=== PATIENT | female | born 1950 | race Caucasian/White ===

== ENCOUNTER 2019-11-23 06:05 | Emergency (ER) | payer MEDICARE, SELFPAY ==
[2019-11-23 06:15] VITALS: BP 190/81; PULSE 103; RESP 16; TEMP 36.8; O2SAT 94; BMI 22.6
--- NOTE | 2019-11-23 07:09 | CT_ITS ---
WS: [id number] CT ABDOMEN AND PELVIS WITH CONTRAST HISTORY: abdominal pain, N/V/D TECHNIQUE: Imaging performed of the abdomen and pelvis with IV contrast. Single phase imaging of the abdomen. Coronal and sagittal reformats are submitted. All CT scans at [facility] use at least one of these dose optimization techniques: automated exposure control; mA and/or kV adjustment per patient size (includes targeted exams where dose is matched to clinical indication); or iterativ e reconstruction. IV CONTRAST: Omnipaque 300; 95 mL IV. Oral contrast: No DLP: 528.53 mGy.cm COMPARISON: None available. Lower thorax: Lung bases are clear. Heart is normal size. Small hiatal hernia. Liver/biliary system: Normal size with no intrahepatic dilatation. Gallbladder: Status post cholecystectomy. Pancreas: Normal. Spleen: Normal. Adrenal glands: Normal. Right kidney: Normal. Left kidney: Normal. Aorta: Scattered intimal thickening and calcified plaque. No aneurysm. Lymphadenopathy: None. Free fluid: None. GI tract: The appendix is normal and contains air. No GI tract obstruction. There are some very mild central small bowel wall thickening. This probably in the distal jejunum or proximal ileum and extend s across the mid pelvis. No adjacent fluid. No significant obstruction. Abdominal wall: Unremarkable abdominal wall. No hernia. Pelvis: No free fluid or adenopathy. Calcification or suture in the LEFT adnexa may be from prior tub al ligation or dystrophic calcification. Bones: RIGHT convex curvature lumbar spine. Moderate degenerative disc disease throughout the lumbar spine. Healed rib fracture on the RIGHT probably at the 10th rib. CT/CT abdomen pelvis w con* [id number] IMPRESSION: 1. Mild small bowel wall thickening, probably distal jejunum or proximal ileum . Bowel wall thickening is across the mid pelvis. Acute enteritis. No obstructi on. 2. No ascites. 3. Prior cholecystectomy. 4. Mild atherosclerosis aorta. 5. Normal appendix.
--- NOTE | 2019-11-23 07:10 | W.ED.ABDPA2 ---
HPI - Abdominal Pain General: Chief Complaint: Abdominal Pain Stated Complaint: nausea; bloating; diarrhea x 3days Time Seen by Provider: 11/23/19 06:59 Source: patient Mode of arrival: ambulatory Limitations: no limitations History of Present Illness: HPI narrative: Patient is a 69-year-old female who presents to ED today with complaints of abdominal pain that began 1.5 days ago. She states pain seems to be diffuse but more so to her upper abdomen. She does tell me she has a chronic history of stomach issues that she treats with pantoprazole. She is describing nausea without vomiting and yellow diarrhea. She feels like her abdomen is bloated. Patient has a previous history of cholecystectomy and endoscopies related to her GERD. She has not been running fevers. She has no urinary symptoms. She denies any bloody or dark stools. Patient tells me she initially thought it might be related to new anxiety and depression medications she was placed on (Xanax and Paxil). She also said it could be related to her nerves as she was placed on these medications due to the recent of her and states she is struggling with anxiety. MD elicited complaint: abdominal pain Onset (ago): day(s) Pain Consistency: constant Location: Diffuse, Epigastric, LUQ and RUQ Quality: cramping and other (bloating) Radiation: none Migration to: no migration Exacerbating factors: nothing Relieving factors: nothing Associated Symptoms: Reports bloating, diarrhea and nausea; Denies chills, coffee ground emesis, constipation, dysuria, fever(s), hematochezia, hematemesis, melena and vomiting Review of Systems Const: Denies: fever(s), chills, body aches, fatigue or malaise ENMT: Denies: odynophagia Card: Denies: chest pain Resp: Denies: dyspnea GI: Reports: abdominal pain, nausea, diarrhea and bloating; Denies: vomiting, hematemesis, coffee ground emesis, constipation, pain on defecation, hematochezia, melena or white/light colored stool : Denies: flank pain, difficulty voiding, dysuria, urinary frequency, urinary urgency or urinary hesitancy Musc: Denies: neck pain or back pain Skin/Breast: Denies: rash Neuro: Denies: headache(s), numbness in extremities, weakness in extremities or sensory changes Physical Exam Const: COMMON NORMALS: average body habitus, patient oriented x3, no limitations, healthy appearing, alert and well nourished GENERAL APPEARANCE: cooperative and anxious HENMT: COMMON NORMALS: normocephalic and atraumatic HEAD & SCALP: normocephalic and atraumatic Resp: COMMON NORMALS: normal respiratory effort and clear to auscultation bilaterally AUSCULTATION: clear to auscultation bilaterally Cardio: COMMON NORMALS: regular rate and regular rhythm RATE: regular rate RHYTHM: regular rhythm GI: COMMON NORMALS: Normal to inspection, nondistended, normoactive bowel sounds present, Soft to palpation, No hepatosplenomegaly present and no masses PALPATION: Yes Soft to palpation, Yes Tenderness to palpation present (GI) (diffuse) and Yes No hepatosplenomegaly present : COMMON NORMALS: Yes no CVA tenderness BLADDER/KIDNEY EXAM: Yes no CVA tenderness Back/Pelvis: COMMON NORMALS: no CVA tenderness Extremity: COMMON NORMALS: normal to inspection Neuro: COMMON NORMALS: patient oriented x3 SENSORIUM/ORIENTATION: Yes alert Skin: COMMON NORMALS: no rashes or lesions noted GENERAL SKIN EXAM: no rashes or lesions noted Course Vital Signs: Vital signs: Vital Signs Temperature 98.3 F 11/23/19 06:15 Pulse Rate 71 11/23/19 10:25 Respiratory Rate 20 H 11/23/19 10:25 Blood Pressure 158/82 11/23/19 10:25 Pulse Oximetry 97 11/23/19 10:25 MDM - Abdominal Pain Lab Data: Labs: Lab Results 11/23/19 11/23/19 11/23/19 Range/Units 07:03 07:03 07:04 WBC 7.7 (4.0-10.0) 10^3/ uL RBC 4.31 (4.1-5.3) 10^6/u L Hgb 13.1 (11.5-15.3) g/dL Hct 39.4 (37.0-47.0) % MCV 91.4 (81-99) fL MCH 30.4 (28.0-34.0) pg MCHC 33.2 (30.0-36.0) g/dL RDW 11.8 L (12.1-15.1) % Plt Count 318 (130-400) 10^3/c mm MPV 9.9 (7.4-10.4) fL Neut % (Auto) 71.7 % Lymph % (Auto) 19.0 % [place] % (Auto) 7.6 % Eos % (Auto) 1.0 % Baso % (Auto) 0.4 % Neut # (Auto) 5.53 (1.8-7.7) 10^3/u L Lymph # (Auto) 1.5 (0.8-4.8) 10^3/u L [place] # (Auto) 0.6 (0.2-0.9) 10^3/u L Eos # (Auto) 0.1 (0.0-0.8) 10^3/u L Baso # (Auto) 0.0 (0.0-0.1) 10^3/u L Nucleated RBC % (a uto) 0 % Nucleated RBCs # 0.0 /100WBC Sodium 137 (136-145) mmol/L Potassium 4.1 (3.5-5.1) mmol/L Chloride 100 (98-107) mmol/L Carbon Dioxide 26 (22-29) mmol/L Anion Gap 15.1 (5-19) BUN 21 (8-23) mg/dL Creatinine 0.8 (0.5-0.9) mg/dL GFR Calculation 71.3 L (90-130) mL/min Glucose 112 (65-115) mg/dL Calculated Osmolal ity 281 L (285-295) mOsm/k g Calcium 9.8 (8.5-10.5) mg/dL Total Bilirubin 0.9 (0.15-1.2) mg/dL AST 32 (0-32) U/L ALT 34 H (0-33) U/L Alkaline Phosphata se 144 H (35-105) IU/L Total Protein 7.7 (6.6-8.7) g/dL Albumin 4.9 (3.5-5.2) g/dL Globulin 2.8 (1.3-4.6) g/dL Lipase 44 (13-60) U/L Urine Color Straw (Yellow) Urine Appearance Clear (CLEAR) Urine pH 5 (5-7) Ur Specific Gravit y 1.020 (1.005-1.030) Urine Protein Neg (Negative) Urine Glucose (UA) Norm (Normal) Urine Ketones Negative (Negative) Urine Blood Neg (Negative) Urine Nitrate Negative (Negative) Urine Bilirubin Neg (NEGATIVE) Urine Urobilinogen Norm (Negative) mg/dL Ur Leukocyte Estefania ase Negative (Negative) Imaging Data ^: CT Abd/Pel: Radiologist's impression: [facility] [address] [address] CT Scan Report Signed Patient: Ester Oliva Unit #: [id number] : 1950 Age/Sex: 69 / F ADM Date: 11/23/19 Loc: ER Room/Bed: Attending Dr: Ordering Provider/Ordering MD: Lavonne Thakkar Date of Service: 11/23/19 Procedure(s): CT abdomen pelvis w con* [id number] Accession Number(s): [id number] Report Number: [id number] WS: [id number] CT ABDOMEN AND PELVIS WITH CONTRAST HISTORY: abdominal pain, N/V/D TECHNIQUE: Imaging performed of the abdomen and pelvis with IV contrast. Single phase imaging of the abdomen. Coronal and sagittal reformats are submitted. All CT scans at [facility] us e at least one of these dose optimization techniques: automated exposure control; mA and/or kV adjustment per patient size (includes targeted exams where dose is matched to clinical indication); or iterative reconstruction. IV CONTRAST: Omnipaque 300; 95 mL IV. Oral contrast: No DLP: 528.53 mGy.cm COMPARISON: None available. Lower thorax: Lung bases are clear. Heart is normal size. Small hiatal hernia. Liver/biliary system: Normal size with no intrahepatic dilatation. Gallbladder: Status post cholecystectomy. Pancreas: Normal. Spleen: Normal. Adrenal glands: Normal. Right kidney: Normal. Left kidney: Normal. Aorta: Scattered intimal thickening and calcified plaque. No aneurysm. Lymphadenopathy: None. Free fluid: None. GI tract: The appendix is normal and contains air. No GI tract obstruction. There are some very mild central small bowel wall thickening. This probably in the distal jejunum or proximal ileum and extends across the mid pelvis. No adjacent fluid. No significant obstruction. Abdominal wall: Unremarkable abdominal wall. No hernia. Pelvis: No free fluid or adenopathy. Calcification or suture in the LEFT adnexa may be from prior tubal ligation or dystrophic calcification. Bones: RIGHT convex curvature lumbar spine. Moderate degenerative disc disease throughout the lumbar spine. Healed rib fracture on the RIGHT probably at the 10th rib. CT/CT abdomen pelvis w con* [id number] IMPRESSION: 1. Mild small bowel wall thickening, probably distal jejunum or proximal ileum. Bowel wall thickening is across the mid pelvis. Acute enteritis. No obstruction. 2. No ascites. 3. Prior cholecystectomy. 4. Mild atherosclerosis aorta. 5. Normal appendix. Dictated By: Debby Rizzo DO Signed By: Debby Rizzo DO Signed Date/Time: 11/23/19953 DD/ 6 Discharge Plan Discharge Patient Disposition: Home, Self-Care Clinical Impression: Enteritis Condition: Stable Prescriptions: New Zofran 4 mg tablet 4 mg PO Q6H PRN (Reason: nausea and vomiting) Qty: 14 RF: 0 Flagyl 500 mg tablet 500 mg PO BID 7 Days Qty: 14 RF: 0 Tylenol-Codeine #3 300-30 mg tablet 1 tab PO Q6H PRN (Reason: pain) Qty: 10 RF: 0 Cipro 500 mg tablet 500 mg PO Q12H Qty: 14 RF: 0 No Action lisinopril 20 mg tablet 20 mg PO DAILY RF: 0 alprazolam 0.25 mg tablet 0.25 mg PO TID RF: 0 pantoprazole 40 mg tablet,delayed release (DR/EC) 40 mg PO DAILY RF: 0 hydrochlorothiazide 25 mg tablet 25 mg PO DAILY RF: 0 dicyclomine 10 mg capsule 10 mg PO QID PRN (Reason: STOMACH CRAMPS) RF: 0 Discharge Orders: Discharge Order (Routine); Ordered 11/23/19 Ordered By: Lavonne Thakkar Referrals: Una Oconnell [Primary Care Provider] - Activity Restrictions/Additional Instructions: Please follow-up with primary care early next week for reevaluation. You may return to the emergency department for worsening pain, fevers, severe vomiting or diarrhea, or any other concerns you may have. Discharge Date/Time: 11/23/19 10:28 Coding Level of Care Code ED Kitchen Clerk for Chg Fwd Exam Comprehensive
[2019-11-23 07:18] LABS: Add Urine Microscopic? NO
[2019-11-23 07:25] LABS: Basophils % 0.4 %; Eosinophils # 0.1 10^3/uL (0.0-0.8); Hematocrit 39.4 % (37.0-47.0); Hemoglobin 13.1 g/dL (11.5-15.3); Lymphocytes # 1.5 10^3/uL (0.8-4.8); Mean Corpuscular HGB Conc 33.2 g/dL (30.0-36.0); Mean Corpuscular Hemoglobin 30.4 pg (28.0-34.0); Mean Corpuscular Volume 91.4 fL (81-99); Mean Platelet Volume 9.9 fL (7.4-10.4); Monocytes # 0.6 10^3/uL (0.2-0.9); Monocytes % 7.6 %; Neutrophils # 5.53 10^3/uL (1.8-7.7); Neutrophils % 71.7 %; Nucleated Red Blood Cells % 0 %; Platelet Count 318 10^3/cmm (130-400); Red Blood Count 4.31 10^6/uL (4.1-5.3); Red Cell Distribution Width 11.8 % (12.1-15.1); White Blood Count 7.7 10^3/uL (4.0-10.0)
[2019-11-23 07:31] LABS: Bilirubin Urine Neg (NEGATIVE); Blood Urine Neg (Negative); Glucose Urine UA Norm (Normal); Ketones Urine Negative (Negative); Leukocyte Esterase Urine Negative (Negative); Nitrate Urine Negative (Negative); Protein Urine Neg (Negative); Urine Appearance Clear (CLEAR); Urine Color Straw (Yellow); Urobilinogen Urine Norm (Negative); pH Urine 5 (5-7)
[2019-11-23 07:35] LABS: Alanine Aminotransferase 34 U/L (0-33); Albumin Level 4.9 g/dL (3.5-5.2); Alkaline Phosphatase 144 IU/L (35-105); Anion Gap 15.1 (5-19); Blood Urea Nitrogen 21 mg/dL (8-23); Calcium 9.8 mg/dL (8.5-10.5); Carbon Dioxide 26 mmol/L (22-29); Chloride 100 mmol/L (98-107); Globulin 2.8 g/dL (1.3-4.6); Glomerular Filtration Rate 71.3 mL/min (90-130); Glucose 112 mg/dL (65-115); Lipase 44 U/L (13-60); Osmolality Calculated 281 mOsm/kg (285-295); Potassium 4.1 mmol/L (3.5-5.1); Sodium 137 mmol/L (136-145); Total Bilirubin 0.9 mg/dL (0.15-1.2); Total Protein 7.7 g/dL (6.6-8.7)
[2019-11-23 07:38] LABS: Aspartate Amino Transferase 32 U/L (0-32)
[2019-11-23] MEDS: iohexol 300 mg/mL 100 mL Btl IV (08:08)
[2019-11-23] MEDS: sodium chloride 0.9% 1,000 ML 999 ML IV (08:15)
[2019-11-23 08:16] VITALS: RESP 18
[2019-11-23] MEDS: morphine 4 mg/mL SDV 1 mL IVP (08:16)
[2019-11-23] MEDS: ondansetron 2 mg/ML SDV 2 mL 4 MG IVP (08:16)
[2019-11-23 10:25] VITALS: BP 158/82; PULSE 71; RESP 20; O2SAT 97
== END 2019-11-23 10:28 | disposition home or self-care (01) ==
PROVIDERS: Emergency Provider Physician Assistant; PCP Nurse Practitioner Family
DX: K52.9 Noninfective gastroenteritis and colitis, unspecified (principal)
CPT/HCPCS: 12345; 74177; 80053; 81003; 83690; 85025; 96361; 96374; 96375; 99282; 99283; J2270; J2405; J7030; Q9967

== ENCOUNTER → 2021-02-11 10:53 | Outpatient (BNVA) | payer MEDICARE, OTHER, SELFPAY | PROVIDERS: PCP Nurse Practitioner Family; Visit Provider Nurse Practitioner Family | DX: E03.9 Hypothyroidism, unspecified (principal); E78.00 Pure hypercholesterolemia, unspecified; F32.4 Major depressive disorder, single episode, in partial remission; F41.9 Anxiety disorder, unspecified; I10 Essential (primary) hypertension; R00.2 Palpitations; M54.42 Lumbago with sciatica, left side; M54.41 Lumbago with sciatica, right side; K21.9 Gastro-esophageal reflux disease without esophagitis; Z87.19 Personal history of other diseases of the digestive system | CPT/HCPCS: 80053; 80061; 84439; 84443; 85025 ==

== ENCOUNTER → 2021-06-03 15:30 | Outpatient (BNVA) | payer MEDICARE, OTHER, SELFPAY | PROVIDERS: PCP Nurse Practitioner Family; Visit Provider Internal Medicine Cardiovascular Disease | DX: R60.9 Edema, unspecified (principal); R06.02 Shortness of breath; R07.89 Other chest pain; R06.00 Dyspnea, unspecified; R00.2 Palpitations; I50.33 Acute on chronic diastolic (congestive) heart failure; I10 Essential (primary) hypertension | CPT/HCPCS: 80048; 83880 ==

== ENCOUNTER → 2021-07-03 09:00 | Outpatient (BNVA) | payer MEDICARE, OTHER, SELFPAY | PROVIDERS: PCP Nurse Practitioner Family; Visit Provider Nurse Practitioner Family | DX: R00.2 Palpitations (principal); I10 Essential (primary) hypertension; R00.0 Tachycardia, unspecified; F32.4 Major depressive disorder, single episode, in partial remission; R60.9 Edema, unspecified | CPT/HCPCS: 80053 ==

== ENCOUNTER 2021-08-01 13:06 | Outpatient (CLI) | payer MEDICARE, OTHER, SELFPAY ==
--- NOTE | 2021-08-01 14:00 | USCV_ITS ---
Ester Oliva Age: 70 Gender: F : 1950 Exam Date: 08/01/2021 13:26 Ordering Phys: Alexis Awad MD ([email or web address]) Technologist: Nicole Howard Exam Location: [facility] [place] Indication: SOB BP: / HR: 57 Rhythm: Sinus Technical Quality: Adequate MEASUREMENTS (Male / Female) Normal Values 2D ECHO LV Diastolic Diameter PLAX 3.7 cm 4.2 - 5.9 / 3.9 - 5.3 cm LV Systolic Diameter PLAX 3.1 cm LV Chamber Size 3.5 cm IVS Diastolic Thickness 0.9 cm 0.6 - 1.0 / 0.6 - 0.9 cm IVS Systolic Thickness 1.4 cm LVPW Diastolic Thickness 1.6 cm 0.6 - 1.0 / 0.6 - 0.9 cm LVPW Systolic Thickness 1.6 cm RV Chamber Size 1.8 cm LVOT Diameter 2.0 cm LV Ejection Fraction 2D Teich 36.1 % LV Ejection Fraction MOD 2C 37.4 % LV Ejection Fraction 2C AL 36.3 % LA Diameter 2.2 cm LA Width 2.9 cm LA Height 3.8 cm RA Width 3.1 cm RA Height 3.8 cm Aorta at Sinotubular Diameter 2.6 cm M-MODE Aortic Annulus Diameter 3.0 cm LA Ao Ratio MM 1.1 MV E Point Septal Separation 0.4 cm DOPPLER AV Peak Velocity 127.0 cm/s LVOT Peak Velocity 96.0 cm/s AV Area Cont Eq vti 2.3 cm squared AV Area Cont Eq pk 2.4 cm squared MV Area PHT 3.5 cm squared Mitral E to A Ratio 0.9 MV E' Velocity 42.0 cm/s Mitral E to MV E' Ratio 9.4 Mitral E to LV E' Lateral Ratio 10.6 Mitral E to LV E' Septal Ratio 8.5 TR Peak Velocity 231.0 cm/s TR Peak Gradient 21.3 mmHg TR Mean Velocity 171.8 cm/s TR Mean Gradient 13.6 mmHg TR Velocity Time Integral 70.3 cm TV Peak E Velocity 65.0 cm/s Right Atrial Pressure 3.0 mmHg Pulmonary Artery Systolic Pressu 24.3 mmHg PV Peak Velocity 68.0 cm/s RV Acceleration Time 0.2 s RV Ejection Time 0.3 s RV AcT/ET 0.5 FINDINGS Left Ventricle Normal left ventricular size and systolic function, EF 55 %. No regional wall motion abnormalities. Right Ventricle The right ventricle is normal in size and function. Right Atrium The right atrium is normal in size. Left Atrium The left atrium is normal in size. Mitral Valve No gross abnormalities noted Aortic Valve No gross abnormalities noted Tricuspid Valve No gross abnormalities noted Pulmonic Valve No gross abnormalities noted Pericardium Normal pericardium without effusion. Aorta Normal ascending aorta dimension. CONCLUSIONS Normal left ventricular size and systolic function, EF 55 %. No regional wall motion abnormalities. Normal cardiac chamber sizes. No significant valve abnormalities. There is no pericardial effusion. There are no intracardiac masses. No similar previous study is available for comparison. Dr Alexis Awad MD [facility] (Electronically Signed) Final Date: 01 August 2021 18:50 S
== END 2021-08-01 13:07 | disposition home or self-care (01) ==
PROVIDERS: PCP Nurse Practitioner Family; Visit Provider Internal Medicine Cardiovascular Disease
DX: R06.00 Dyspnea, unspecified (principal); R06.02 Shortness of breath
CPT/HCPCS: 93306

== ENCOUNTER 2021-08-06 06:43 | Outpatient (CLI) | payer MEDICARE, OTHER, SELFPAY ==
[2021-08-06 06:53] VITALS: BMI 26.6
--- NOTE | 2021-08-06 06:53 | ECG_ITS ---
[facility] Test Date: 2021-08-06 Pat Name: Ester Oliva Department: Room: Gender: Female Mirror Painter: Aleyda Covarrubias : 1950 Requested By: Alexis Awad Order Number: [id number] MD: Alexis Awad M.D. Interpretive Statements NAME OF STUDY: LEXISCAN SESTAMIBI STRESS TEST INDICATION: Cp/sob, PROCEDURE: At the baseline, the EKG revealed normal sinus rhythm with a poor R wave progression. Some nonspecific ST changes. The baseline blood pressure was 130/58 mm Hg with a heart rate of 59 beats/min. Lexiscan was infused over a period of 20 seconds. A total of 0.4 milligrams of Lexiscan was infused. The stress phase was continued for a total of 5 minutes. Heart rate at the end of the stress phase was 80 with a blood pressure 137/57. The EKG at the peak infusion revealed no significant changes. Sestamibi was injected 20 seconds after the Lexiscan infusion. Blood pressure at the end of the recovery phase was 139/51 with a heart rate of 74 per minute. CONCLUSION: 1. No significant EKG changes with the LexiScan infusion 2. No LexiScan induced chest pain or cardiac arrhythmia 3. Normal blood pressure and heart rate response 4. Sestamibi/sestamibi perfusion scan pending; see separate report. Electronically Signed On 08-08-2021 13:14:26 CDT by Alexis Awad M.D. [id number]
--- NOTE | 2021-08-06 06:54 | NMCV_ITS ---
NM kelvin perf SPECT r/s* [id number] Ester Oliva Age: 70 Gender: F : 1950 Exam Date: 08/06/2021 08:09 Ordering Phys: Alexis Awad MD ([email or web address]) Technologist: TAYLA Pina Exam Location: [facility] Indications: SHORTNESS OF BREATH STRESS TEST [facility] IMAGE PROTOCOL Rest/Stress 1 Lexiscan Day Radiopharmaceutical Dose (mCi) Administration Site Administered by Rest: Tc-99m 10.7 IV TAYLA Joe Sestamibi Stress:Tc-99m 32.7 IV TAYLA Joe Sestamibi Rest: 06-Aug-2021 60 Discovery 630 Stress: 06-Aug-2021 30 Discovery 630 0.4mg Lexiscan. Images obtained in supine and prone position. SPECT RESULTS Technical Quality: Excellent Raw Data Analysis: Normal Image Corrections: No attenuation or motion correction applied Summed Stress Score: 0 Summed Rest Score: 0 Summed Difference Score: 0 PERFUSION FINDINGS Uniform myocardial tracer uptake FUNCTIONAL RESULTS (calculated via Gated SPECT) Stress Image LV EF (%): 79 Stress EDV (mL):70 TID: 1.21 Stress ESV (mL):15 FUNCTIONAL FINDINGS: Segmental wall motion analysis revealing no gross wall motion abnormalities. IMPRESSIONS 1. Unremarkable myocardial perfusion imaging 2. Normal LV ejection fraction of 79%. 3. Segmental wall motion analysis revealing no gross wall motion abnormalities 4. Normal LV volume 5. Elevated transient ischemic dilatation ratio may suggest endocardial ischemia. However in the absence of any other abnormal objective findings, this could be a nonspecific finding. Possibly no significant coronary ischemia, based on the above findings Dr Alexis Awad MD [facility] (Electronically Signed) Final Date: 06 August 2021 18:41 S
[2021-08-06] MEDS: regadenoson 0.4 Mg/5 ml Syringe IVP (08:47)
[2021-08-06 09:07] VITALS: BP 139/51; PULSE 75
== END 2021-08-06 06:44 | disposition home or self-care (01) ==
LOC: CDL 06:44
PROVIDERS: PCP Nurse Practitioner Family; Visit Provider Internal Medicine Cardiovascular Disease
DX: R07.9 Chest pain, unspecified (principal); R06.02 Shortness of breath
CPT/HCPCS: 78452; 93017; A9500; J2785

== ENCOUNTER 2021-08-26 08:58 | Outpatient (CLI) | payer MEDICARE, OTHER, SELFPAY ==
--- NOTE | 2021-08-26 09:03 | USCV_ITS ---
Ester Oliva Age: 70 Gender: F : 1950 Exam Date: 08/26/2021 09:18 Ordering Phys: Una Oconnell NP Technologist: Nicole Howard [place] [facility] [place] [place]ication: HTN Aortic Velocity @ SMA (cm/s) 96.7 RIGHT KIDNEY LEFT KIDNEY Velocity (cm/s) Velocity (cm/s) Sys/Leon Sys/Leon Resistive Index Resistive Index 90.1 / 34.7 0.62 Proximal Renal Artery 114.9 / 22.3 0.81 282.4 / 85.9 0.70 Mid Renal Artery 100.8 / 19.8 0.80 154.3 / 62.5 0.59 Distal Renal Artery 90.9 / 23.1 0.75 158.2 / 39.1 0.75 Hilar 91.7 / 22.3 0.76 102.1 / 25.8 0.75 Upper Pole 96.4 / 17.2 0.82 71.3 / 15.5 0.78 Mid Pole 66.8 / 15.3 0.77 76.3 / 16.1 0.79 Lower Pole 84.9 / 18.1 0.79 2.90 Renal Aortic Ratio 1.17 Accleration Index (cm/sec2) 2500.0 Hilar 818.00 0 1742.0 Upper Pole 1794.0 0 0 1107.0 Mid Pole 923.00 0 670.00 Lower Pole 896.00 73.3 Kidney Length (mm) 83.9 FINDINGS Normal aortorenal ratios Elevated velocity in the right mid renal artery Left kidney measuring 8.39 cm in length and right kidney measuring 7.33 cm CONCLUSIONS 1. Elevated velocity in the right mid renal artery, suggesting greater than 60% stenosis. 2. Contracted kidney on the right side measuring 7.33 cm. 3. Relatively small kidney on the left side measuring 8.34 cm 4. Elevated resistive indicis on the left side, suggesting medical renal disease No similar previous studies are available for comparison Dr Alexis Awad MD [facility] (Electronically Signed) Final Date: 29 August 2021 08:57 S
== END 2021-08-26 08:59 | disposition home or self-care (01) ==
LOC: RAD 09:00
PROVIDERS: PCP Nurse Practitioner Family; Visit Provider Nurse Practitioner Family
DX: I10 Essential (primary) hypertension (principal); I70.1 Atherosclerosis of renal artery
CPT/HCPCS: 93975

== ENCOUNTER → 2021-09-02 10:18 | Outpatient (BNVA) | payer MEDICARE, OTHER, SELFPAY | PROVIDERS: PCP Nurse Practitioner Family; Visit Provider Internal Medicine Cardiovascular Disease | DX: R07.89 Other chest pain (principal); R00.2 Palpitations; R60.9 Edema, unspecified; R00.0 Tachycardia, unspecified; I10 Essential (primary) hypertension | CPT/HCPCS: 99213; 99214 ==

== ENCOUNTER → 2021-09-16 10:15 | Outpatient (BNVA) | payer MEDICARE, OTHER, SELFPAY | PROVIDERS: PCP Nurse Practitioner Family; Visit Provider Nurse Practitioner Family | DX: I10 Essential (primary) hypertension (principal); E78.00 Pure hypercholesterolemia, unspecified; I70.1 Atherosclerosis of renal artery; E03.9 Hypothyroidism, unspecified; R60.9 Edema, unspecified; F32.4 Major depressive disorder, single episode, in partial remission; F41.9 Anxiety disorder, unspecified; R00.0 Tachycardia, unspecified; R06.00 Dyspnea, unspecified; M54.9 Dorsalgia, unspecified; R00.2 Palpitations | CPT/HCPCS: 80053; 80061; 84439; 84443; 84481; 85025 ==

== ENCOUNTER → 2021-10-15 10:38 | Outpatient (BNVA) | payer MEDICARE, OTHER, SELFPAY | PROVIDERS: PCP Nurse Practitioner Family; Visit Provider Nurse Practitioner Family | DX: N18.32 Chronic kidney disease, stage 3b (principal); I70.1 Atherosclerosis of renal artery; E78.00 Pure hypercholesterolemia, unspecified; I10 Essential (primary) hypertension; M54.9 Dorsalgia, unspecified; F41.9 Anxiety disorder, unspecified | CPT/HCPCS: 80053 ==

== ENCOUNTER → 2021-11-24 12:25 | Outpatient (BNVA) | payer MEDICARE, OTHER, SELFPAY | PROVIDERS: PCP Nurse Practitioner Family; Visit Provider Nurse Practitioner Family | DX: N18.32 Chronic kidney disease, stage 3b (principal); I10 Essential (primary) hypertension; R60.9 Edema, unspecified | CPT/HCPCS: 80053; 80061 ==

== ENCOUNTER → 2022-05-15 13:24 | Outpatient (BNVA) | payer MEDICARE, OTHER, SELFPAY | PROVIDERS: PCP Nurse Practitioner Family; Visit Provider Nurse Practitioner Family | DX: N18.32 Chronic kidney disease, stage 3b (principal); I10 Essential (primary) hypertension; K21.9 Gastro-esophageal reflux disease without esophagitis; F41.9 Anxiety disorder, unspecified; E03.9 Hypothyroidism, unspecified; E78.00 Pure hypercholesterolemia, unspecified; R60.9 Edema, unspecified; R07.9 Chest pain, unspecified | CPT/HCPCS: 80053; 80061; 84443 ==

== ENCOUNTER → 2023-01-12 11:39 | Outpatient (BNVA) | payer MEDICARE, OTHER, SELFPAY | PROVIDERS: PCP Nurse Practitioner Family; Visit Provider Nurse Practitioner Family | DX: N18.32 Chronic kidney disease, stage 3b (principal); I12.9 Hypertensive chronic kidney disease with stage 1 through stage 4 chronic kidney disease, or unspecified chronic kidney disease; I70.1 Atherosclerosis of renal artery; K21.9 Gastro-esophageal reflux disease without esophagitis; E03.9 Hypothyroidism, unspecified; F41.9 Anxiety disorder, unspecified; E78.00 Pure hypercholesterolemia, unspecified; R07.9 Chest pain, unspecified; R60.9 Edema, unspecified | CPT/HCPCS: 80053; 80061; 82043; 84443 ==

== ENCOUNTER → 2025-01-04 13:08 | Outpatient (BNVA) | payer MEDICARE, OTHER, SELFPAY | PROVIDERS: PCP Nurse Practitioner Family; Visit Provider Podiatrist Foot & Ankle Surgery | DX: S86.012A Strain of left Achilles tendon, initial encounter (principal); W28.XXXA Contact with powered lawn mower, initial encounter | CPT/HCPCS: 99204 ==

== ENCOUNTER 2025-01-09 11:01 | Outpatient (CLI) | payer MEDICARE, OTHER, SELFPAY ==
--- NOTE | 2025-01-09 11:06 | MM_ITS ---
WS: [id number] BILATERAL 3D TOMOSYNTHESIS DIGITAL SCREENING MAMMOGRAPHY WITH CAD CLINICAL INFORMATION: SCREENING HISTORY: Screening mammogram. No current complaints. COMPARISON: None. TECHNIQUE: Bilateral CC and MLO views. FINDINGS: The breasts are composed of heterogeneous fibroglandular density tissue, which can limit the detection of small underlying mass lesions. No suspicious mass, asymmetry, calcifications, or architectural distortion. No evidence of malignancy. Vascular calcification. MM/MM [place] tomosynthesis [id number] IMPRESSION: DENSITY: The breasts are heterogeneously dense, which may obscure small masses. BI-RADS: 2 - Benign FOLLOW UP: 1 Year Follow-up Recommend return to annual screening mammography.
== END 2025-01-09 11:02 | disposition home or self-care (01) ==
LOC: RAD 11:03
PROVIDERS: PCP Nurse Practitioner Family; Visit Provider Nurse Practitioner Family
DX: Z12.31 Encounter for screening mammogram for malignant neoplasm of breast (principal); R92.333 Mammographic heterogeneous density, bilateral breasts; R92.323 Mammographic fibroglandular density, bilateral breasts; R92.1 Mammographic calcification found on diagnostic imaging of breast
CPT/HCPCS: 77063; 77067

== ENCOUNTER 2025-01-12 10:48 | Outpatient (CLI) | payer MEDICARE, OTHER, SELFPAY ==
--- NOTE | 2025-01-12 11:00 | MR_ITS ---
WS: [id number] MRI LEFT ANKLE WITHOUT CONTRAST. COMPARISON: Radiograph 10/17/2024 Multiplanar, multisequence imaging is performed without contrast. Achilles tendon: Markedly abnormal appearance of a large portion of the Achilles tendon. There is a complete tear of the Achilles tendon centered approximately 5 cm proximal to the Achilles insertion site. Fluid gap and complete tear extends over a length of 2.5 cm. The tendon proximal to the tear is heterogeneous and thickened measuring 10 mm. The tendon distal to the tear is slightly retracted measuring 1.3 cm in diameter and abnormal heterogeneous signal. No acute fractures or marrow edema. There is a small joint effusion. Soft tissue edema surrounding the Achilles tendon. Tiny amount of fluid in the retrocalcaneal bursa. Small amount of fluid adjacent to the peroneal tendon sheath. No tear. The flexor hallucis longus, flexor digitorum longus and the posterior tibialis tendons are normal. Anterior tibialis tendons and extensor tendons are normal. Anterior and posterior tibiofibular ligaments are normal. Partial tear of the anterior talofibular ligament. There is a partial tear of the ATFL from the central portion of the ligament. The posterior TFL is normal. Negative deltoid ligament. Normal calcaneofibular ligament. Normal sinus Tarsi. MR/MR ankle LT wo con* [id number] IMPRESSION: 1. Markedly abnormal Achilles tendon. 2. 2.5 cm complete tear of the Achilles tendon. Tear is centered 5 cm from the calcaneal insertion site tear. 3. The Achilles tendon proximal and distal to the tear is markedly enlarged an d tendinopathic. 4. Partial tear of ATFL.
== END 2025-01-12 10:49 | disposition home or self-care (01) ==
LOC: RAD 10:49
PROVIDERS: PCP Nurse Practitioner Family; Visit Provider Podiatrist Foot & Ankle Surgery
DX: S86.012A Strain of left Achilles tendon, initial encounter (principal); S93.492A Sprain of other ligament of left ankle, initial encounter; X58.XXXA Exposure to other specified factors, initial encounter
CPT/HCPCS: 73721

== ENCOUNTER → 2025-01-17 12:38 | Outpatient (BNVA) | payer MEDICARE, OTHER, SELFPAY | PROVIDERS: PCP Nurse Practitioner Family; Visit Provider Podiatrist Foot & Ankle Surgery | DX: S86.012A Strain of left Achilles tendon, initial encounter (principal); X58.XXXA Exposure to other specified factors, initial encounter | CPT/HCPCS: 99214 ==

== ENCOUNTER → 2025-02-21 10:53 | Outpatient (BNVA) | payer MEDICARE, OTHER, SELFPAY | PROVIDERS: PCP Nurse Practitioner Family; Visit Provider Student in an Organized Health Care Education/Training Program | DX: M25.561 Pain in right knee (principal); M25.562 Pain in left knee; M17.12 Unilateral primary osteoarthritis, left knee | CPT/HCPCS: 20610; 73560; 73565; 99204; J3301; J9999 ==

== ENCOUNTER → 2025-02-22 10:47 | Outpatient (BNVA) | payer MEDICARE, OTHER, SELFPAY | PROVIDERS: PCP Nurse Practitioner Family; Visit Provider Dermatology | DX: D18.01 Hemangioma of skin and subcutaneous tissue (principal); L57.8 Other skin changes due to chronic exposure to nonionizing radiation; L82.0 Inflamed seborrheic keratosis; L53.8 Other specified erythematous conditions; B07.8 Other viral warts; D48.5 Neoplasm of uncertain behavior of skin | CPT/HCPCS: 11102; 17110; 99203 ==

== ENCOUNTER 2025-03-17 05:00 | Outpatient (CLI) | payer MEDICARE, OTHER, SELFPAY | END 2025-03-17 05:01 | LOC: SPT 04-02 08:31 | PROVIDERS: Visit Provider Podiatrist Foot & Ankle Surgery | DX: Z47.89 Encounter for other orthopedic aftercare (principal); Z98.890 Other specified postprocedural states; M79.672 Pain in left foot | CPT/HCPCS: L3170 ==

== ENCOUNTER 2025-03-23 08:16 | Day surgery (SDC) | payer MEDICARE, OTHER, SELFPAY ==
[2025-03-23] VITALS (10 sets, daily range): BP systolic 117–147; BP diastolic 37–75; PULSE 60–66; RESP 14–21; TEMP 36.4; O2SAT 92–100; BMI 27.4
--- NOTE | 2025-03-23 08:31 | ANES.PREANE2 ---
Pre-Anesthetic Assessment Height/Weight: Height 5 ft 4 in Preop Diagnosis: Left Achilles rupture Operation Date: 03/23/25 09:15 Proposed Procedures p Achilles Tendon Repair(Left) - Yehuda Mayfield DPM s Tendon Transfer Foot Flexor Hallucis Longus Tendon Transfer(Left) - Yehuda Mayfield DPM Was Beta Arpit taken within 24 hours: Yes Was Clonidine taken within 24 hours: N/A Social No alcohol and No tobacco Exam alert, oriented x 3, clear to auscultation bilaterally and regular rate & rhythm Airway Submandibular: within normal limits Cervical ROM: within normal limits Mallampati: Class III Dentition: full Anesthetic Plan ASA status: 3 Anesthesia: General and Regional (specify below) Other: No prior issues with anesthesia NPO since yesterday evening History of hypertension on metoprolol and olmesartan GERD, on omeprazole History of hypothyroidism, was on Synthroid and then stopped. 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 Prior renal artery stenosis Labs reviewed, BMP pending Plan for general anesthesia with preop nerve block Medications/Allergies Home Medications ?Medication ?Instructions ?Recorded ?Confirmed ?Last Taken ?Type B-complex with vitamin C 1 tab PO DAILY 06/03/21 03/23/25 03/22/25 History cholecalciferol (vitamin D3) 10 10 mcg PO DAILY 06/03/21 03/23/25 03/22/25 History mcg (400 unit) capsule coenzyme Q10 100 mg capsule 100 mg PO DAILY 06/03/21 03/23/25 03/22/25 History multivitamin 1 tab PO DAILY 06/03/21 03/23/25 Unknown History cyclosporine 0.05 % eye drops 1 drp ophthalmic (eye) Q12H #5.5 mL 02/01/23 03/23/25 Unknown Rx (Restasis MultiDose) bumetanide 1 mg tablet 1 mg PO DAILY 90 days #90 tabs 01/24/24 03/23/25 03/21/25 Rx levothyroxine 50 mcg tablet 50 mcg PO DAILY 90 days #90 tabs 01/24/24 03/23/25 Unknown Rx ondansetron 4 mg disintegrating 4 mg PO Q6H PRN nausea and 01/26/24 03/23/25 03/22/25 Rx tablet vomiting #90 tabs cyclobenzaprine 10 mg tablet 10 mg PO TID PRN muscle spasm 30 02/09/24 03/23/25 Unknown Rx days #90 tabs CAM BOOT #1 ea 01/04/25 03/23/25 Unknown Rx dicyclomine 10 mg capsule 10 mg PO DAILY 03/22/25 03/23/25 03/22/25 History escitalopram oxalate 20 mg tablet 5 mg PO DAILY 03/22/25 03/23/25 03/22/25 History metoprolol succinate 50 mg 50 mg PO DAILY 03/22/25 03/23/25 03/23/25 History tablet,extended release 24 hr olmesartan 20 mg tablet 20 mg PO DAILY 03/22/25 03/23/25 03/22/25 History omeprazole 20 mg capsule,delayed 20 mg PO DAILY 03/22/25 03/23/25 03/22/25 History release Allergies Allergy/AdvReac Type Severity Reaction Status Date / Time Penicillins Allergy Unknown Verified 03/23/25 09:16 [facility] Anesthesia Family History Mother CAD (coronary artery disease) cabg x 5, carotid artery by Dr Ferrera, [place] Brother CAD (coronary artery disease), Onset Age: 58 aortic valve replaced Sister CAD (coronary artery disease), Onset Age: 60 mitral valve problems Grandmother Cancer Family/Other Lung disease Denies family history of Diabetes Clotting disorder Dementia Chronic kidney disease (CKD) Suicide Anesthesia complication Bleeding disorder Stroke Social History Smoking and tobacco/nicotine status: never used tobacco/nicotine Alcohol intake: never Substance/Drug Use: never Data Anesthesia 03/23/25 09:03 Cardiac Studies: Echocardiogram 08/01/21 Sestamibi Stress Test (Cardiology) 08/06/21
--- NOTE | 2025-03-23 09:32 | PM.OP ---
Operative Report Date of procedure: March 23, 2025 Pre-op diagnosis: Complete rupture of left Achilles tendon S86.012A Post-op diagnosis: Complete rupture of left Achilles tendon S86.012A Post-op findings: Complete rupture left Achilles tendon. Procedure done: 1) left Achilles tendon repair. CPT code 28970 2) left flexor hallucis longus tendon transfer. CPT code 89928 Implants: [place] [employer] Operator interference screw 5.5 mm, 3-0 Vicryl, 4-0 Vicryl, 4-0 nylon. Specimens removed/disposition: No specimens removed. Pathology: No pathology specimens Surgeon: Yehuda Mayfield DPM Ell Teacher: Cong Estimated blood loss: 25 59 IV fluids: See intraoperative documentation. Urine output: None Complications: No complications Findings: Complete rupture of left Achilles tendon. Brief History: 74-year-old female with a history of a left Achilles tendon rupture presenting for follow-up evaluation. The MRI confirmed a complete rupture, and the patient exhibits an inability to perform plantar flexion with the left foot, indicating significant functional impairment. Procedure: Under mild sedation patient was brought to the operating room and remained on the [facility] in supine position. Timeout was performed. Anesthesia was administered by the anesthesia service. Of note left popliteal block performed preoperatively per anesthesia. Patient was then transferred from the [facility] into the prone position onto the operating table with appropriate padding and offloading. Well-padded pneumatic tourniquet applied to the left high calf. The left lower extremity was scrubbed, prepped and draped utilizing normal aseptic technique. Left foot and ankle were exanguinated with Esmarch bandage and tourniquet inflated to 250 mmHg. Attention was directed to the left posterior leg and heel where a palpable deficit of the Achilles tendon was appreciated. Directly over the Achilles tendon #15 blade was utilized to perform a skin incision in a linear fashion through skin and subcutaneous tissue down to the layer of peritenon, and peritenon that was incised revealing the Achilles tendon, care was taken to retract and preserve neurovascular and tendinous structures. All bleeders were ligated and cauterized as necessary. Complete rupture of the Achilles tendon with gapping appreciated with degenerative ends which were debrided to healthy tissue utilizing Peoples scissors, the incision irrigated with saline solution. Given the amount of degenerative changes to the Achilles tendon this necessitated a transfer of the flexor hallucis longus tendon this was harvested at its most distal and with a [place] master tendon and transferred into the calcaneus utilizing a whipstitch and fixated with [place] 5.5 mm interference screw with excellent bony apposition and pullout strength noted intraoperatively. Appropriate tension appreciated with tendon transfer. The incision was irrigated with saline solution and Achilles tendon was repaired utilizing a Krak?w stitch with #2 FiberWire with excellent approximation and strength at the repair site. Loading the forefoot the repair was robust and showed no signs of tearing or fraying. The incision was irrigated with saline solution and closed in a layered fashion, peritenon reapproximated with 3-0 Vicryl, subcutaneous tissue with 4-0 Vicryl and skin with 4-0 nylon. Incision was then dressed with Xeroform, sterile 4 x 4 gauze, Kerlix and a well-padded cast short leg cast was applied to the left lower extremity in a equinus position. Patient tolerated the procedure and anesthesia well and was transferred to the PACU with vital signs stable and vascular status intact. Following a period of postoperative monitoring she will discharge home without home care instructions and scheduled follow-up is advised to remain strict nonweightbearing.
--- NOTE | 2025-03-23 09:32 | W.PM.OPSUD ---
Surgery/Procedure H&P Update DATE OF PROCEDURE: March 23, 2025 DATE H&P PERFORMED: 01/17/25 H&P UPDATE INFORMATION: I have reviewed H&P completed within last 30 days, I have examined patient prior to procedure, No changes to prior documentation, H&P is in [facility] EMR on date indicated and Risks and benefits of the procedure reviewed PREOP DIAGNOSIS: Left Achilles rupture PLANNED PROCEDURE: Operation Date: 03/23/25 09:15 Proposed Procedures p Achilles Tendon Repair(Left) - Yehuda Mayfield DPM s Tendon Transfer Foot Flexor Hallucis Longus Tendon Transfer(Left) - Yehuda Mayfield DPM
--- NOTE | 2025-03-23 09:33 | PM.OPSURHP ---
Providers/Chief Complaint Primary Care Provider: AYO Knight Chief Complaint: S86.012A History of Present Illness Ester Oliva is a 74 year old female presenting with a follow-up evaluation of a left Achilles tendon rupture. The rupture was confirmed by MRI, showing a complete rupture, and the patient reports an inability to perform plantar flexion with the left foot. The injury occurred in late October, and the patient has been unable to stand on her toes with the affected foot since then. She is considering surgical repair, which involves a 12-week recovery period, or physical therapy as a non-surgical option. The patient is contemplating delaying surgery until after a planned trip in February, understanding that surgical intervention will still be necessary. Review of Systems General: Reports: 10 or more systems reviewed and unremarkable except in HPI and below Const: Denies: fever(s) or chills Eyes: Denies: change in vision Card: Denies: chest pain or palpitations Resp: Denies: dyspnea or productive cough GI: Denies: abdominal pain, nausea or vomiting : Denies: flank pain Musc: Reports: extremity pain, joint pain, joint stiffness, limited range of motion and deformity Skin/Breast: Reports: skin tenderness; Denies: rash Neuro: Reports: difficulty walking; Denies: numbness in extremities, sensory changes or frequent falls Psych: Denies: suicidal ideation Ulisses/Lymph: Denies: easy bruising Medications/Allergies Home Medications ?Medication ?Instructions ?Recorded ?Confirmed ?Last Taken ?Type B-complex with vitamin C 1 tab PO DAILY 06/03/21 03/23/25 03/22/25 History cholecalciferol (vitamin D3) 10 10 mcg PO DAILY 06/03/21 03/23/25 03/22/25 History mcg (400 unit) capsule coenzyme Q10 100 mg capsule 100 mg PO DAILY 06/03/21 03/23/25 03/22/25 History multivitamin 1 tab PO DAILY 06/03/21 03/23/25 Unknown History cyclosporine 0.05 % eye drops 1 drp ophthalmic (eye) Q12H #5.5 mL 02/01/23 03/23/25 Unknown Rx (Restasis MultiDose) bumetanide 1 mg tablet 1 mg PO DAILY 90 days #90 tabs 01/24/24 03/23/25 03/21/25 Rx levothyroxine 50 mcg tablet 50 mcg PO DAILY 90 days #90 tabs 01/24/24 03/23/25 Unknown Rx ondansetron 4 mg disintegrating 4 mg PO Q6H PRN nausea and 01/26/24 03/23/25 03/22/25 Rx tablet vomiting #90 tabs cyclobenzaprine 10 mg tablet 10 mg PO TID PRN muscle spasm 30 02/09/24 03/23/25 Unknown Rx days #90 tabs CAM BOOT #1 ea 01/04/25 03/23/25 Unknown Rx dicyclomine 10 mg capsule 10 mg PO DAILY 03/22/25 03/23/25 03/22/25 History escitalopram oxalate 20 mg tablet 5 mg PO DAILY 03/22/25 03/23/25 03/22/25 History metoprolol succinate 50 mg 50 mg PO DAILY 03/22/25 03/23/25 03/23/25 History tablet,extended release 24 hr olmesartan 20 mg tablet 20 mg PO DAILY 03/22/25 03/23/25 03/22/25 History omeprazole 20 mg capsule,delayed 20 mg PO DAILY 03/22/25 03/23/25 03/22/25 History release Allergies Allergy/AdvReac Type Severity Reaction Status Date / Time Penicillins Allergy Unknown Verified 03/23/25 09:16 PFSH PFSH: Family History Mother CAD (coronary artery disease) cabg x 5, carotid artery by Dr Ferrera, [place] Brother CAD (coronary artery disease), Onset Age: 58 aortic valve replaced Sister CAD (coronary artery disease), Onset Age: 60 mitral valve problems Grandmother Cancer Family/Other Lung disease Denies family history of Diabetes Clotting disorder Dementia Chronic kidney disease (CKD) Suicide Anesthesia complication Bleeding disorder Stroke Social History Smoking and tobacco/nicotine status: never used tobacco/nicotine Alcohol intake: never Substance/Drug Use: never Dietary Habits: Caffeine: Yes Vital Signs Vitals Signs: Last Vital Signs Temp 97.5 F L 03/23/25 09:17 Pulse 63 03/23/25 09:17 Resp 17 03/23/25 09:17 BP 137/75 03/23/25 09:17 Pulse Ox 95 03/23/25 09:17 O2 Del Method Room Air 03/23/25 09:17 Weight: Weight last 48 hrs Weight 160 lb Physical Exam Narrative: EXAM NARRATIVE: Patient is alert and oriented ?3 and in no acute distress. The following is a focused bilateral lower extremity exam. VASCULAR: Dorsalis pedis and posterior tibial arteries palpable +2. Capillary refill time less than 3 seconds to the distal hallux bilaterally. Calf is supple and nontender proximally and distally. No pedal edema appreciated. Pedal hair growth present. NEUROLOGICAL: Epicritic and protopathic sensations grossly intact to the lower extremities. +2 Achilles tendon reflex noted bilaterally. Negative Tinel sign upon percussion of lower extremity nerves. DERMATOLOGICAL: Lower extremity skin is well-hydrated, normal texture and turgor. There are no open sores or lesions noted to the lower extremities. No erythema or ecchymosis present to the bilateral legs and feet. MUSCULOSKELETAL: Palpable deficit with attenuation and gapping of the watershed zone of Achilles tendon indicative of complete rupture. Decreased left ankle plantarflexion. CARDIOVASCULAR: S1, S2, normal rate, normal rhythm. Dorsalis pedis and posterior tibial arteries palpable. LUNGS: Clear to auscltation, no use of acessory muscles, no crackles or wheezes. Data Other data: Ordering Provider/Ordering MD: Yehuda Mayfield DPM Date of Service: 01/12/25 Procedure(s): MR ankle LT wo con* [id number] Accession Number(s): [id number] Report Number: [id number] WS: [id number] MRI LEFT ANKLE WITHOUT CONTRAST. COMPARISON: Radiograph 10/17/2024 Multiplanar, multisequence imaging is performed without contrast. Achilles tendon: Markedly abnormal appearance of a large portion of the Achilles tendon. There is a complete tear of the Achilles tendon centered approximately 5 cm proximal to the Achilles insertion site. Fluid gap and complete tear extends over a length of 2.5 cm. The tendon proximal to the tear is heterogeneous and thickened measuring 10 mm. The tendon distal to the tear is slightly retracted measuring 1.3 cm in diameter and abnormal heterogeneous signal. No acute fractures or marrow edema. There is a small joint effusion. Soft tissue edema surrounding the Achilles tendon. Tiny amount of fluid in the retrocalcaneal bursa. Small amount of fluid adjacent to the peroneal tendon sheath. No tear. The flexor hallucis longus, flexor digitorum longus and the posterior tibialis tendons are normal. Anterior tibialis tendons and extensor tendons are normal. Anterior and posterior tibiofibular ligaments are normal. Partial tear of the anterior talofibular ligament. There is a partial tear of the ATFL from the central portion of the ligament. The posterior TFL is normal. Negative deltoid ligament. Normal calcaneofibular ligament. Normal sinus Tarsi. MR/MR ankle LT wo con* [id number] IMPRESSION: 1. Markedly abnormal Achilles tendon. 2. 2.5 cm complete tear of the Achilles tendon. Tear is centered 5 cm from the calcaneal insertion site tear. 3. The Achilles tendon proximal and distal to the tear is markedly enlarged and tendinopathic. 4. Partial tear of ATFL. Dictated By: Debby Rizzo DO A&P Assessment and plan 1. Rupture of left Achilles tendon, subsequent encounter: Plan: 74-year-old female with a history of a left Achilles tendon rupture presenting for follow-up evaluation. The MRI confirmed a complete rupture, and the patient exhibits an inability to perform plantar flexion with the left foot, indicating significant functional impairment. The patient is considering surgical repair, which involves a 12-week recovery period, including six weeks of non-weight bearing and gradual weight-bearing in a boot. Alternatively, she is considering physical therapy as a non-surgical option, which may take two to three months to see if healing occurs. The patient is contemplating delaying surgery until after a planned trip in February, understanding that surgical intervention will still be necessary. 1. Complete Rupture Of The Left Achilles Tendon The patient is presented with two options for managing the complete rupture of the left Achilles tendon: surgical repair or physical therapy. Surgical repair involves a 12-week recovery period, with six weeks of non-weight bearing followed by gradual weight-bearing in a boot. Physical therapy is a non-surgical option that may take two to three months to see if healing occurs, but there is a risk that it may not be effective, necessitating surgery later. The patient is considering delaying surgery until after a planned trip in February, understanding that surgical intervention will still be necessary. - Consider the options of surgical repair or physical therapy for the Achilles tendon rupture. - If opting for surgery, prepare for a 12-week recovery period, including six weeks of non-weight bearing. - If choosing physical therapy, engage in the recommended sessions to promote healing. - Consider delaying surgery until after the planned trip in February if necessary. The patient presents with a complete rupture of the left Achilles tendon confirmed by MRI. The decision-making process involves weighing the benefits and risks of surgical repair versus physical therapy. Surgical repair offers the advantage of restoring normal tendon function but requires a significant recovery period. Physical therapy may allow for healing without surgery, but there is a risk of incomplete recovery, potentially necessitating surgery later. The patient is considering delaying surgery until after a planned trip, understanding that surgical intervention will still be necessary. I reviewed at length with the patient, the risks, potential complications, benefits, alternatives, expectations, and typical outcomes associated with the surgery. The risks and potential complications were explained in detail, including but not limited to infection, wound dehiscence or soft tissue complications, bleeding and hematoma, chronic edema, neuritis or nerve damage producing numbness or chronic pain, CRPS, failure to relieve pain or worsening pain, thick / painful / unsightly scar, limited motion / stiffness, malposition, delayed union, malunion, or nonunion, fracture, reaction to implants, anesthetic complications, venous thromboembolism, and deformity recurrence. I discussed the notion of no regrets with the patient as it pertains to complications and outcomes. The patient seemed to understand the nature of the proposed care and required convalescence. They asked appropriate questions, answered to their satisfaction. They are aware no guarantees can be made as to a satisfactory outcome and they understand there may be other possible unforeseen complications or outcomes not listed here that will be treated accordingly if they arise. There were no written or implied guarantees given to the patient. They gave informed consent to proceed. Plan for direct repair and tendon transfer flexor hallucis longus tendon to the calcaneus 03/23/2025 PDMP PDMP Reviewed: Not Reviewed Coding Level of Care Code Acute Code for [facility] Fwd Diagnoses Rupture of left Achilles tendon, subsequent encounter S86.012D Encounter type: subsequent encounter
[2025-03-23 09:58] LABS: Anion Gap 17.8 (5-19); Blood Urea Nitrogen 33 mg/dL (8-23); Calcium 9.2 mg/dL (8.5-10.5); Carbon Dioxide 25 mmol/L (22-29); Chloride 100 mmol/L (98-107); Glucose 110 mg/dL (65-115); Osmolality Calculated 294 mOsm/kg (285-295); Potassium 4.8 mmol/L (3.5-5.1); Sodium 138 mmol/L (136-145)
--- NOTE | 2025-03-23 10:32 | ANES.PROC ---
Anesthesia Procedures Procedure/Date: 03/23/25 Left popliteal nerve block and left adductor canal block for postoperative pain control Nerve Block ^: Nerve Block 1: Main Anesthesia: general anesthesia Time Out Performed: Yes Consent: requested by attending/covering physician and from patient Laterality: Left Nerve block location: popliteal Anesthesia monitors applied: pulse oximetry, EKG, BP cuff and oxygen Nerve block position: supine Anesthetic Used: ropivicaine 0.5% Amount of anesthesia used (mL): 25 Ultrasound used to: recognize landmarks Nerve Stimulator Used?: Yes Interscalene/Femoral BLK: other needle (pjunk 4inch) Injection: neg aspiration of heme Patient Tolerated Procedure: well Complications: none Nerve Block 2: Main Anesthesia: general anesthesia Time Out Performed: Yes Consent: requested by attending/covering physician and from patient Laterality: Left Nerve block location: adductor canal Anesthesia monitors applied: pulse oximetry, EKG, BP cuff and oxygen Nerve block position: supine Anesthetic Used: ropivicaine 0.5% Amount of anesthesia used (mL): 20 Nerve Stimulator Used?: No Interscalene/Femoral BLK: other needle (pjunk 4inch) Injection: neg aspiration of heme Patient Tolerated Procedure: well Complications: none
--- NOTE | 2025-03-23 11:32 | XR_ITS ---
WS: [id number] C-ARM RADIOGRAPHS LEFT FOOT; 2 IMAGES HISTORY: OR PICS COMPARISON: 10/17/2024 Intraoperative imaging during procedure involving the hindfoot. Only 2 images are submitted. There is orthopedic hardware overlying the calcaneus. XR/XR foot LT 2V 28415 IMPRESSION: Intraoperative imaging during hindfoot procedure.
--- NOTE | 2025-03-23 11:51 | P.BOP_ITS ---
Date of Procedure: 07/30/23 Surgeon: Yehuda Mayfield DPM Financial Planning Assistant(s): Cong Procedure(s) performed: Left Achilles tendon repair and tendon transfer of the flexor hallucis longus to calcaneus. Findings of the procedure(s): Complete rupture with 2.5 cm gapping left Achilles Estimated blood loss: 25 mL Specimen(s) removed: None Post-operative diagnosis: Left Achilles tendon rupture
--- NOTE | 2025-03-23 13:34 | ANE.PACU2 ---
Inpatient post-anesthesia follow up: Airway intact: Yes Vital signs: Temperature 997.0 F Pulse Rate 62 Respiratory Rate 18 Blood Pressure 147/48 Pulse Oximetry 93 Oxygen Delivery Me thod Room Air Oxygen Flow Rate 6 Fraction of Inspir ed Oxygen Hydration adequate: Yes Nausea and vomiting: No Pain level: 1 Mental status: Baseline
== END 2025-03-23 13:10 | disposition home or self-care (01) ==
PROVIDERS: PCP Nurse Practitioner Family; Visit Provider Podiatrist Foot & Ankle Surgery
PROC: (CPT 27650; principal; 2025-03-23 09:05)
PROC: (CPT 27654; 2025-03-23 09:05)
DX: S86.012A Strain of left Achilles tendon, initial encounter (principal); X58.XXXA Exposure to other specified factors, initial encounter; I10 Essential (primary) hypertension; K21.9 Gastro-esophageal reflux disease without esophagitis; E03.9 Hypothyroidism, unspecified
CPT/HCPCS: 27654; 27691; 64445; 64447; 36415; 73620; 76000; 80048; C1713; J1100; J2371; J2405; J2704; J2710; J3010; J3490; J7030; J9999

== ENCOUNTER → 2025-04-05 13:46 | Outpatient (BNVA) | payer MEDICARE, OTHER, SELFPAY | PROVIDERS: Visit Provider Podiatrist Foot & Ankle Surgery | DX: Z98.890 Other specified postprocedural states (principal) | CPT/HCPCS: 99024 ==

== ENCOUNTER → 2025-04-19 14:43 | Outpatient (BNVA) | payer MEDICARE, OTHER, SELFPAY | PROVIDERS: PCP Nurse Practitioner Family; Visit Provider Podiatrist Foot & Ankle Surgery | DX: Z98.890 Other specified postprocedural states (principal) | CPT/HCPCS: 99024 ==

== ENCOUNTER → 2025-05-07 10:45 | Outpatient (BNVA) | payer MEDICARE, OTHER, SELFPAY | PROVIDERS: PCP Nurse Practitioner Family; Visit Provider Podiatrist Foot & Ankle Surgery | DX: Z98.890 Other specified postprocedural states (principal) | CPT/HCPCS: 99024 ==